=== PATIENT | female | born 2000 | race Caucasian/White ===

== ENCOUNTER 2022-12-06 05:15 | Emergency (ER) | payer OTHER ==
[~2022-12-06] VITALS: Ht 157.5 cm; Wt 49.5 kg
[2022-12-06 05:24] VITALS: BP 141/66
[2022-12-06 06:29] LABS: BASOPHILS % 0.4 % (0.0-2.0); EOSINOPHILS % 0.9 % (0.0-5.0); HEMATOCRIT. 37.5 % (36.0-48.0); HEMOGLOBIN. 12.7 g/dL (12.0-16.0); LYMPHOCYTES % 10.4 % (20.0-50.0); MEAN CORPUSCULAR HEMOGLOBIN 30.2 pg (28.0-32.0); MEAN CORPUSCULAR VOLUME 89.5 fL (81.0-99.0); MEAN PLATELET VOLUME 8.7 fl (7.4-10.4); MONOCYTES % 8.2 % (2.0-8.0); NEUTROPHILS % 80.1 % (40.0-76.0); PLATELET 289 x1000/uL (130-400); RED BLOOD CELL COUNT 4.19 mill/uL (4.2-5.4); RED CELL DISTRIBUTION WIDTH 14.2 % (11.6-14.6)
[2022-12-06 06:38] LABS: CHLORIDE 111 mEq/L (98-107)
[2022-12-06 06:47] LABS: B-HCG QUANTITATIVE 94 mIU/mL (<3)
== END 2022-12-06 09:56 | disposition home or self-care (01) ==
LOC: ER 05:15
DX: O20.0 Threatened abortion (principal); Z3A.01 Less than 8 weeks gestation of pregnancy; N83.202 Unspecified ovarian cyst, left side; N83.201 Unspecified ovarian cyst, right side
CPT/HCPCS: 36415; 76801; 80053; 81025; 84702; 85025; 86850; 86900; 99284

== ENCOUNTER 2023-05-13 03:44 | Emergency (ER) | payer MEDICAID, OTHER ==
[~2023-05-13] VITALS: Ht 157.5 cm; Wt 100.0 kg
[2023-05-13 04:02] VITALS: BP 117/77; PULSE 98; RESP 14; TEMP 98.2; O2SAT 100
[2023-05-13] MEDS ORDERED: CEFTRIAXONE SODIUM 1 G/VIAL IM ONE (05:30)
[2023-05-13] MEDS ORDERED: ACETAMINOPHEN 325MG TABLET PO ONE (05:30)
[2023-05-13] MEDS ORDERED: DOXYCYCLINE HYCLATE 100MG CAPSULE PO ONE (05:30)
[2023-05-13] MEDS ORDERED: TOPUD PO (06:43)
[2023-05-13] MEDS ORDERED: DOXY100T2 PO (06:43)
[2023-05-15 09:09] LABS: NEISSERIA GONORRHOEAE NAA Negative (Negative)
[2023-05-16 06:11] LABS: CHLAMYDIA TRACHOMATIS NAA Positive (Negative)
== END 2023-05-13 07:27 | disposition home or self-care (01) ==
LOC: ER 03:44
DX: R07.89 Other chest pain (principal); A64 Unspecified sexually transmitted disease
CPT/HCPCS: 87491; 87591; 81025; 71045; 99283; J0696; Z7610

== ENCOUNTER 2023-06-13 13:47 | Emergency (ER) | payer MEDICAID, OTHER ==
[~2023-06-13] VITALS: Ht 152.4 cm; Wt 45.0 kg
[~2023-06-13 13:47] MED LIST: DOXY100T2 PO; TOPUD PO
[2023-06-13 13:58] VITALS: BP 107/62; PULSE 87; RESP 18; TEMP 98.4; O2SAT 100
[2023-06-13 17:45] LABS: CLARITY URINE CLOUDY (CLEAR); COLOR URINE YELLOW (YELLOW); GLUCOSE URINE NEGATIVE (NEGATIVE); KETONES URINE NEGATIVE (NEGATIVE); LEUKOCYTE ESTERASE URINE NEGATIVE (NEGATIVE); NITRITE URINE NEGATIVE (NEGATIVE); OCCULT BLOOD URINE NEGATIVE (NEGATIVE); PH URINE 7.5 (4.5-8.0); PROTEIN URINE NEGATIVE (NEGATIVE); SPECIFIC GRAVITY URINE 1.018 (1.005-1.030); UROBILINOGEN URINE 0.2 E.U./dL (0.2-1.0)
[2023-06-13 17:48] LABS: BACTERIA URINE NONE SEEN; RBC URINE 0-2 /hpf (0-2); YEAST URINE NONE SEEN
[2023-06-13 18:09] LABS: SQUAMOUS EPITHELIAL CELL URINE RARE /lpf (RARE/1+); WBC URINE 0-2 /hpf (0-2)
[2023-06-13 18:10] LABS: AMORPHOUS SEDIMENT URINE 1+ /lpf
[2023-06-13] MEDS ORDERED: DOXY100T2 PO (19:25)
[2023-06-16 04:10] LABS: CHLAMYDIA TRACHOMATIS NAA Negative (Negative); NEISSERIA GONORRHOEAE NAA Negative (Negative)
== END 2023-06-13 20:44 | disposition home or self-care (01) ==
LOC: ER 13:47
DX: Z20.2 Contact with and (suspected) exposure to infections with a predominantly sexual mode of transmission (principal)
CPT/HCPCS: 81003; 81025; 87491; 87591; 99283